=== PATIENT | male | born 1990 | race Hispanic/Latino ===

== ENCOUNTER → 2018-11-14 | Outpatient (CLI) | payer OTHER ==
--- NOTE | 2018-11-14 13:49 | REP ---
Right ankle four views : There is no fracture or dislocation. Mineralization and joint spaces are normal. There are no calcifications or foreign bodies. Impression: Negative right ankle. Left ankle four views : There is no fracture or dislocation. Mineralization and joint spaces are normal. There are no calcifications or foreign bodies. The left calcaneus is unremarkable. Impression: Negative left ankle . Electronically Signed by Rod Gresham MD 11/14/2018 01:41 P
--- NOTE | 2018-11-14 13:50 | REP ---
Right calcaneus two views : There is no fracture or dislocation. Mineralization and joint spaces are normal. There are no calcifications or foreign bodies. There are no calcaneal spurs. Impression: Negative right calcaneus. Right calcaneus four views: There is no fracture or dislocation. Mineralization and joint spaces are normal. There are no calcifications or foreign bodies. There are no calcaneal spurs. The Impression: Negative left calcaneus . Electronically Signed by Rod Gresham MD 11/14/2018 01:42 P
== END ==
LOC: M RAD 08:57
PROVIDERS: ATTEND Surgery
DX: M25.571 Pain in right ankle and joints of right foot (principal); M25.572 Pain in left ankle and joints of left foot